=== PATIENT | male | born 1980 | race Caucasian/White ===

== ENCOUNTER 2016-07-13 12:43 | Emergency (ER) | payer MEDICAID, OTHER ==
[2016-07-13 13:09] VITALS: RESP 16; TEMP 97.7
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
[2016-07-13] MEDS ORDERED: SKIN ADHESIVE (DERMABOND) 1 EACH TP ONE (13:32)
[2016-07-13] MEDS ORDERED: AMOXICILLIN/CLAVULANATE POT 875/125 MG TAB PO ONE (14:05)
[2016-07-13] MEDS ORDERED: IBUPROFEN 200 MG TAB PO ONE ×2 (14:10→14:11)
[2016-07-13 14:49] VITALS: BP 128/92; PULSE 74; O2SAT 94
== END 2016-07-13 14:51 | disposition home or self-care (01) ==
DX: S02.40FA Zygomatic fracture, left side, initial encounter for closed fracture (principal); S01.112A Laceration without foreign body of left eyelid and periocular area, initial encounter; S01.511A Laceration without foreign body of lip, initial encounter; I10 Essential (primary) hypertension; F17.200 Nicotine dependence, unspecified, uncomplicated; Y04.0XXA Assault by unarmed brawl or fight, initial encounter; Y99.8 Other external cause status; Y93.89 Activity, other specified